=== PATIENT | male | born 1940 | race Caucasian/White ===

== ENCOUNTER 2018-09-27 13:12 | Emergency (ER) | payer OTHER ==
--- NOTE | 2018-09-27 13:34 | EDPHY ---
H & P Stated Complaint: pt fell skiing - hit head, +loc, confused short term mems - resolved Time Seen by Provider: 09/27/18 13:27 HPI/ROS: CHIEF COMPLAINT: Head injury, fell skiing HISTORY OF PRESENT ILLNESS: The patient presents the emergency department after he fell skiing. He was helmeted. He presents with complaints of headache and slight confusion. The patient is 78 years old. He is not anticoagulated. He denies any acute numbness or weakness. The patient did sustain some superficial abrasions to his nose and face. He denies any neck pain, chest pain, back pain, difficulty breathing or other acute complaints. REVIEW OF SYSTEMS: A comprehensive 10 point review of systems is otherwise negative aside from elements mentioned in the history of present illness. Source: Patient Exam Limitations: No limitations - Medical/Surgical History Hx Asthma: No Hx Chronic Respiratory Disease: No Hx Diabetes: No Hx Cardiac Disease: No Hx Renal Disease: No Hx Cirrhosis: No Hx Alcoholism: No Hx HIV/AIDS: No Hx Splenectomy or Spleen Trauma: No Other PMH: none - Social History Smoking Status: Never smoked - Physical Exam Exam: General Appearance: Alert, no distress Head: Superficial abrasions noted to the chin and cheek Eyes: Pupils equal, round, reactive ENT, Mouth: No hemotympanum, no oral trauma Neck: Nontender, trachea midline Respiratory: No chest wall tender, no subcutaneous air, lungs clear bilaterally Cardiovascular: Regular rate and rhythm Abdomen: Abdomen is soft and nontender, pelvis stable Skin: No lacerations, No abrasion Back: No midline T/L/S pain Extremities: Nontender, full range of motion Neurological: A&Ox3, normal motor function, normal sensory exam Constitutional: Initial Vital Signs Temperature (C) 36.3 C 09/27/18 13:18 Heart Rate 86 09/27/18 13:18 Respiratory Rate 18 09/27/18 13:18 Blood Pressure 149/74 H 09/27/18 13:18 O2 Sat (%) 96 09/27/18 13:18 O2 Delivery Mode Room Air Allergies/Adverse Reactions: No Known Allergies Allergy (Verified 09/27/18 13:22) Home Medications: Medication Instructions Recorded Fluticasone Nasal [Flonase nasal 2 sprays NASAL DAILY 06/07/11 spray] Medical Decision Making - Diagnostics Imaging Results: Imaging Impressions Head CT 09/27/18 13:32 Impression: 1. No acute intracranial process. 2. Age-appropriate generalized cerebral volume loss with sequelae of chronic microvascular ischemic disease. Findings and recommendations discussed with Juice Wagoner at 1400 hour, . ED Course/Re-evaluation: Given the patient's age, mechanism of injury and complaints of acute headache a CT scan of brain has been ordered for evaluation of skull fracture and intracranial hemorrhage. Patient's GCS of 15 upon arrival. Fortunately the results of the head CT scan demonstrate no evidence of an intracranial hemorrhage or skull fracture. Re-evaluated the patient at 2:07 p.m.. Neurologically intact. Patient will be discharged home with customary concussion aftercare instructions. He is given follow up with our concussion specialist Dr. Snow for any persistent symptoms. Differential Diagnosis: Differential diagnosis considered includes concussion, skull fracture, intracranial hemorrhage Departure - Departure Disposition: [facility] Inpatient Acute Clinical Impression: Concussion Qualifiers: Encounter type: initial encounter Loss of consciousness presence/duration: without LOC Qualified Code(s): S06.0X0A - Concussion without loss of consciousness, initial encounter Condition: Good Instructions: Concussion (ED) Additional Instructions: 1. Concussion aftercare as directed. 2. Please follow up with concussion specialist for any symptoms of a persistent headache, confusion or visual changes. 3. Tylenol and ibuprofen as needed for pain. 4. Your head CT scan demonstrates no evidence of a skull fracture or or intracranial hemorrhage. Referrals: Luís Frederick MD [Primary Care Provider] - As per Instructions
[2018-09-27 14:11] VITALS: BP 122/80
== END 2018-09-27 14:11 | disposition still patient (30) ==
DX: S06.0X0A Concussion without loss of consciousness, initial encounter (principal); S00.81XA Abrasion of other part of head, initial encounter; V00.321A Fall from snow-skis, initial encounter; Y92.9 Unspecified place or not applicable; Y93.9 Activity, unspecified; Y99.9 Unspecified external cause status